=== PATIENT | male | born 1945 | race Caucasian/White ===

== ENCOUNTER → 2016-09-23 | Day surgery (SDC) | payer MEDICARE, OTHER ==
[~2016-09-23] VITALS: Ht 172.7 cm; Wt 71.0 kg
[~2016-09-23] MED LIST: ACETAMINOPHEN 1000 MG/100 ML VIAL IV ONE; ACETAMINOPHEN 1000 MG/100 ML VIAL IV SCH; ACETAMINOPHEN/HYDROcodone 325 MG/5 MG TAB ONE; APREPITANT 40 MG CAP ONE; BUPIVACAINE/EPINEPHRINE 0.5% PF 10 ML VIAL ONE; CHLORHEXIDINE GLUCONATE 2 % 1 PACK (2 CLOTHS) TOPICAL PRN; DEXAMETHASONE SOD PHOS 4 MG/ML VIAL ONE; DICLOFENAC SODIUM 37.5 MG/ML VIAL IV PUSH ONE; DO NOT ADM ANY ANTICOAGULANT DRUGS PRN; FAMOTIDINE 20 MG/2 ML VIAL ONE; INSULIN HUMAN REGULAR 1,000 UNITS/10 ML VIAL SQ PRN; LACTATED RINGER'S 1000 ML INJ 1,000 ML IV ONE; LACTATED RINGER'S 1000 ML IV PRN; LEVO75TA3 PO; METOPROLOL TARTRATE 25 MG TAB PO PRN; MIDAZOLAM HCL 2 MG/2 ML VIAL ONE; NEOSTIGMINE 3 MG/3 ML SYR IV ONE; ONDANSETRON HCL 4 MG/2 ML VIAL IV PUSH ONE; POVIDONE IODINE 5% (ANTISEPSIS KIT) 4 APPLICATIONS EACH NARE PRN; PROPOFOL 200 MG/20 ML AMP IV ONE; SODIUM CHLORID 0.9% 500 ML IV PRN; ceFAZolin 2 GM PREMIX 50 ML IV SCH; ePHEDrine/NS 25 MG/5 ML SYR IV ONE; fentaNYL CITRATE 250 MCG/5 ML AMP ONE
[2016-09-23 07:40] VITALS: BP 164/89; PULSE 70; RESP 18; TEMP 96.9; O2SAT 98
--- NOTE | 2016-09-23 11:48 | PD.OP ---
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 Due to the chronic nature of indirect sac and the adhesions the peritoneum was opened inadvertently and repaired with 2 #1 Endoloops. Procedure in detail: The patient was taken to the operating room and placed in the supine position. General endotracheal anesthesia was induced. The abdomen was prepped and draped in usual sterile fashion and a surgical timeout performed to verify correct patient procedure and site. A 1 cm incision was made inferior to the umbilicus after infiltration of local anesthetic. Dissection carried down to the underlying fascia and the anterior fascia to the right of midline was incised vertically. The extraperitoneal space was developed by insufflating the balloon. This trocar was then removed and the structural balloon was placed. The extraperitoneal space was insufflated to 11 mmHg with CO2 gas which the patient tolerated well. Next two 5 mm ports were placed in the lower midline. Attention was turned to the right inguinal area. Unfortunately the epigastric vessels were pulled away somewhat from the anterior abdominal wall required elevation in order to appropriately dissect the lateral space. Medially Indio's ligament was identified. There was no evidence of direct or femoral hernia present. Attention was turned to the spermatic hepatic cord. There was a very large spermatic cord lipoma which was fully reduced. The spermatic cord structures were identified. A fairly small but chronic indirect inguinal hernia was identified and this was reduced from spermatic cord structures. It was thick and quite adherent to surrounding structures and inadvertently opened. After further dissection I repaired the defect in the peritoneum with 2 #1 Endoloops. At this point, a 15 x 15 cm piece of ultra Pro advanced lightweight polypropylene mesh was cut to approximately 12 x 14 cm. It was secured with the CapSure tacker superior laterally, superior and lateral to the epigastric vessels, medially at Indio's ligament, and medial and superior in the rectus musculature. There was complete coverage of the entire inguinal floor including the indirect and direct spaces. The extraperitoneal spaces and allowed to desufflate and trochars were removed. The anterior fascia was closed with running 2-0 Vicryl suture and skin with 4-0 Monocryl subcuticular as well as Dermabond. The patient tolerated the procedure well and was extubated and taken to PACU in stable condition. Kyle Arias MD Sep 23, 2016 11:48
[2016-09-23 13:25] VITALS: BP 133/68; PULSE 65; RESP 18; TEMP 97.7; O2SAT 99
== END | disposition home or self-care (01) ==
LOC: HSDC 07:33
PROVIDERS: ATTEND Surgery
DX: K40.90 Unilateral inguinal hernia, without obstruction or gangrene, not specified as recurrent (principal); D17.6 Benign lipomatous neoplasm of spermatic cord; E03.9 Hypothyroidism, unspecified; J45.909 Unspecified asthma, uncomplicated; N18.3 Chronic kidney disease, stage 3 (moderate); M54.12 Radiculopathy, cervical region; Z87.891 Personal history of nicotine dependence; Z85.46 Personal history of malignant neoplasm of prostate; Z86.73 Personal history of transient ischemic attack (TIA), and cerebral infarction without residual deficits
CPT/HCPCS: 49650; C1727; C1781; J0131; J0690; J1100; J1130; J2250; J2405; J2710; J3010; J7120; J8501